=== PATIENT | female | born 1950 | race Caucasian/White ===

== ENCOUNTER 2024-03-05 11:06 | Emergency (ER) | payer MEDICARE, OTHER ==
--- NOTE | 2024-03-05 11:35 | ED Physician Documentation ---
History of Present Illness - Stated complaint Stated Complaint: FALL,LT SIDE PX - Chief complaint Chief Complaint: Trauma Ch/Bk - Additonal information Additional information: 71-year-old female here visiting from [place] on vacation fell down a flight of stairs she says that she is gassing about 13 stairs 2 days ago. She originally went into a walk-in clinic to have some x-rays done because having severe left-sided pain but they sent her here into the emergency department. She has a history of spinal stenosis and is waiting to get established with a spinal surgeon. She has severe left rib/side pain with bruising left neck pain she says that she fell forward and tumbled when she fell down the stairs. She had a right knee arthroplasty she is having bilateral knee pain. She says that she took her hydrocodone earlier this morning with little to no relief and she is having significant pain with inhalation there is no loss of consciousness she is not any blood thinners. 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, Hysterectomy - Present Medications Home Medications: Ambulatory Orders Medication Instructions Recorded Confirmed Ondansetron Odt [Zofran Odt] 4 mg TL Q6H PRN #10 tablet 03/05/24 oxyCODONE [Roxicodone] 5 mg PO Q4HR PRN #15 tablet 03/05/24 - Allergies Allergies/Adverse Reactions: Allergies Allergy/AdvReac Type Severity Reaction Status Date / Time bee venom protein (honey bee) Allergy Respiratory Verified 03/05/24 12:08 - Social History Does the pt smoke?: No Smoking Status: Never smoker Does the pt drink ETOH?: Yes ETOH Use: Wine, Liquor Does the pt have substance abuse?: No - Immunizations Immunizations are current?: Yes - POLST Patient has POLST: No Results - Vitals Vitals: Vital Signs - 24 hr 03/05/24 03/05/24 03/05/24 11:18 13:05 14:23 Temperature 36.7 C 36.8 C Heart Rate 71 77 70 Respiratory 22 18 Rate Blood Pressure 157/81 H 141/71 H 140/81 H O2 Saturation 100 100 96 Oxygen O2 Source Room air - Labs Labs: Laboratory Tests 03/05/24 03/05/24 03/05/24 11:30 11:30 11:30 WBC 8.9 RBC 4.69 Hgb 14.3 Hct 45.9 MCV 97.9 MCH 30.5 MCHC 31.2 L RDW 13.2 Plt Count 269 MPV 8.6 Neut # (Auto) 6.1 Lymph # (Auto) 1.8 Dougherty # (Auto) 0.7 Eos # (Auto) 0.2 Baso # (Auto) 0.1 Absolute Nucleated RBC 0.00 Nucleated RBC % 0.0 APTT 29.5 Sodium 137 Potassium 3.3 L Chloride 106 Carbon Dioxide 26 Anion Gap 5.0 L BUN 14 Creatinine 0.8 Estimated GFR (MDRD) 70 L Glucose 89 Calcium 8.8 Total Bilirubin 0.5 AST 14 ALT 14 Alkaline Phosphatase 78 Total Protein 7.2 Albumin 4.2 Globulin 3.0 Albumin/Globulin Ratio 1.4 Lipase 14 Urine Color Urine Clarity Urine pH Ur Specific [place] Urine Protein Urine Glucose (UA) Urine Ketones Urine Occult Blood Urine Nitrite Urine Bilirubin Urine Urobilinogen Ur Leukocyte Esterase Ur Microscopic Review Urine Culture Comments Urine Opiates Screen Ur Buprenorphine Scrn Ur Oxycodone Screen Urine Methadone Screen Ur Barbiturates Screen Ur Tricyclics Screen Ur Phencyclidine Scrn Ur Amphetamine Screen U Methamphetamines Scrn U Benzodiazepines Scrn Urine Cocaine Screen U Cannabinoids Screen Ur Drug Screen Comment Blood Type Blood Type Recheck Antibody Screen 03/05/24 03/05/24 03/05/24 11:35 12:19 12:23 WBC RBC Hgb Hct MCV MCH MCHC RDW Plt Count MPV Neut # (Auto) Lymph # (Auto) Dougherty # (Auto) Eos # (Auto) Baso # (Auto) Absolute Nucleated RBC Nucleated RBC % APTT Sodium Potassium Chloride Carbon Dioxide Anion Gap BUN Creatinine Estimated GFR (MDRD) Glucose Calcium Total Bilirubin AST ALT Alkaline Phosphatase Total Protein Albumin Globulin Albumin/Globulin Ratio Lipase Urine Color LIGHT YELLOW Urine Clarity CLEAR Urine pH 6.5 Ur Specific [place] <=1.005 Urine Protein NEGATIVE Urine Glucose (UA) NEGATIVE Urine Ketones NEGATIVE Urine Occult Blood NEGATIVE Urine Nitrite NEGATIVE Urine Bilirubin NEGATIVE Urine Urobilinogen 0.2 (NORMAL) Ur Leukocyte Esterase NEGATIVE Ur Microscopic Review NOT INDICATED Urine Culture Comments NOT INDICATED Urine Opiates Screen POSITIVE H Ur Buprenorphine Scrn NEGATIVE Ur Oxycodone Screen NEGATIVE Urine Methadone Screen NEGATIVE Ur Barbiturates Screen NEGATIVE Ur Tricyclics Screen NEGATIVE Ur Phencyclidine Scrn NEGATIVE Ur Amphetamine Screen NEGATIVE U Methamphetamines Scrn NEGATIVE U Benzodiazepines Scrn NEGATIVE Urine Cocaine Screen NEGATIVE U Cannabinoids Screen NEGATIVE Ur Drug Screen Comment CUTOFF CONC BELOW: Blood Type O POSITIVE Blood Type Recheck O POSITIVE Antibody Screen NEGATIVE - Rads (name of study) Bilateral knee x-ray Relevant Findings:: Final report received, EMP independent interpretation of test, Other (No acute bony abnormalities or findings.) Cervical spine without Relevant Findings:: Final report received, EMP independent interpretation of test, Other (No subluxation or acute bony fractures or abnormalities) Head CT without Relevant Findings:: Final report received, EMP independent interpretation of test, Other (No acute intracranial abnormalities or findings) Abdomen pelvis with Relevant Findings:: Final report received, EMP independent interpretation of test, Other (Displaced posterior left ninth and 10th rib fracture with associated small pleural effusion and basilar atelectasis, moderate hiatal hernia) Chest CT with Relevant Findings:: Final report received, EMP independent interpretation of test, Other (Displaced posterior fracture is that the left ninth and 10th ribs with small pleural effusion) PD Medical Decision Making - ED course ED course: 73-year-old female presents emergency department for severe left rib pain after falling down flight of stairs 2 days ago. Patient says that overall her pain has been manageable but comes and goes in waves. Upon arrival to the emergency department she is having a severe episode of pain. Labs are complete for further evaluation she has no leukocytosis no anemia mild hypokalemia, potassium 3.3 she was given 20 mEq of potassium for replacement. Urinalysis unremarkable. Patient had multiple different images complete for further evaluation bilateral knee x-rays were unremarkable no acute findings or abnormalities. Cervical spine was also complete without any subluxation or any acute bony abnormalities or findings. Abdomen pelvis CT with contrast was also complete no intra-abdominal abnormalities or findings chest CT with contrast was also complete and did reveal a displaced fracture of the posterior left ninth and 10th rib. She also had a small left pleural effusion and compressive atelectasis at the very base of the left lung without a pneumothorax incidentally she was also found to have a moderate hiatal hernia. We did discuss the possibility of admitting the patient here as we have been having a hard time initially controlling her pain. After second dose of IV Dilaudid she had significant alleviation of pain she got a total of 3 doses of IV Dilaudid here in the emergency department as well as Toradol and Zofran and patient was able to successfully ambulate without any difficulty to the bathroom and reported almost complete severity of the pain. Patient says that she would really prefer to discharge home and would like to avoid admission at all cost. Patient is on opioids at home for chronic's spondylosis but I do believe that she takes this very frequently and would benefit from an additional prescription of opioids. I am prescribing a short course of short-acting opioid pain medication for this patient. 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 I have discussed that the opioids are for short term therapy only, and will not be refilled from the ED. Patient was encouraged to continue to ambulate to take deep breaths and anticough frequently to help prevent from things such as pneumonia and other acute secondary side effects from broken ribs. Very strict return precautions given patient safe for discharge at this time all questions answered. Departure - Departure Disposition: 01 Home, Self Care Clinical Impression: Fall down stairs, Ribs, multiple fractures, Pleural effusion, Hypokalemia Instructions: Effusion Pleural, ED Fx Rib Prescriptions: oxyCODONE [Roxicodone] 5 mg PO Q4HR PRN #15 tablet PRN Reason: Pain 5-7 Ondansetron Odt [Zofran Odt] 4 mg TL Q6H PRN #10 tablet PRN Reason: Nausea / Vomiting Comments: Thank you for trusting us with your care. We have completed a head CT, cervical CT we do not see any acute abnormalities or findings of these. We have also completed a chest abdomen pelvis CT and we did find a displaced ninth and 10th left rib fracture. We have also found a small pleural effusion of your left lung. Your bilateral knee x-rays were found to be within normal limits. We discussed discharge versus admission and unfortunately we do not have any h ospital beds and so you would like to opt to discharge home. Going home make sure that you are very strict about writing down all the medications that you are taking daily so that you do not fall behind on your pain control. There is 325 mg of Tylenol and [place] you can take up to 1000 mg of Tylenol every 8 hours a total of 4 g, or 4000 mg of Tylenol daily. I would add additional Tylenol to your [place], I would take 650 mg of Tylenol with your [place] every 8 hours. I have also prescribed you a medication called oxycodone you can take 5 mg of oxycodone every 4 hours as needed for pain. Please take either ibuprofen or Aleve for 2 to 3 days to help with inflammation and pain. I would also consider adding a lidocaine patch to your left rib region you wear this for 12 hours on 12 hours off. Please apply 20 minutes of ice to your left ribs 1 hour off frequently throughout the day make sure that you are getting up and walking around wearing her AURELIA hose to help with bilateral lower extremity swelling and taking deep breaths and coughing with a pillow supporting your left ribs. If you go home and you are not having any improvement of symptoms and you are continuing to feel worse or starting develop any shortness of breath chest pain or any other concerning emergent symptoms please present back to the nearest emergency department for further evaluation. I am prescribing a short course of narcotic pain medication for you. These are potentially dangerous and addictive medications that should be used carefully. These medications may constipate you. Take an [id number] stool softener (docusate) twice daily with plenty of water while taking these medications. If you go 24 hours without a bowel movement, take [id number] miralax, per package instructions. Do not drink or drive while taking these medications. If you received narcotic or sedating medications while in the emergency department, do not drive for 24 hours. Store this medication in a safe, secure place and out of reach of children. It is a violation of federal law to give or sell this medication to another person or to use in a manner other than prescribed. The ED will not refill narcotic prescriptions, including prescriptions lost or stolen. To dispose of unwanted medications: 1. [facility] at [address] in [place] has a medication drop box. They accept prescription medications (in pill form) Saturday through Saturday 9:00 a.m. to 5:00 p.m. 2. The [facility] [employer] accepts prescription medications (in pill form only) for disposal year round. Call for more information. 3. Contact the [facility] for the next [facility] sponsored prescription drug collection event. , [phone], or [phone]; Note that many narcotic pain relievers also contain Tylenol/acetaminophen. Please ensure that your total dose of acetaminophen from all sources does not exceed 3 g (3000 mg) per day. Forms: PCP List Discharge Date/Time: 03/05/24 14:00
[2024-03-05] MEDS ORDERED: iohexoL-300 100 ML VIAL ONE (11:39)
[2024-03-05 11:44] LABS: BASOPHILS # (AUTO) 0.1 10^3/uL (0.0-0.1); BASOPHILS % (AUTO) 1.1 %; EOSINOPHILS # (AUTO) 0.2 10^3/uL (0.0-0.7); EOSINOPHILS % (AUTO) 1.9 %; HCT - HEMATOCRIT 45.9 % (37.0-47.0); HGB - HEMOGLOBIN 14.3 g/dL (12.0-16.0); LYMPHOCYTES # (AUTO) 1.8 10^3/uL (1.5-3.5); LYMPHOCYTES % (AUTO) 20.6 %; MEAN CORPUSCULAR HEMOGLOBIN 30.5 pg (27.0-31.0); MEAN CORPUSCULAR HGB CONC 31.2 g/dL (32.0-36.0); MEAN CORPUSCULAR VOLUME 97.9 fL (81.0-99.0); MEAN PLATELET VOLUME 8.6 fL (7.9-10.8); MONOCYTES # (AUTO) 0.7 10^3/uL (0.0-1.0); MONOCYTES % (AUTO) 7.4 %; NEUTROPHILS # (AUTO) 6.1 10^3/uL (1.5-6.6); NEUTROPHILS % (AUTO) 68.7 %; PLT - PLATELET COUNT 269 10^3/uL (130-450); RED BLOOD COUNT 4.69 10^6/uL (4.20-5.40); RED CELL DISTRIBUTION WIDTH 13.2 % (12.0-15.0); WHITE BLOOD COUNT 8.9 x10^3/uL (4.8-10.8)
[2024-03-05 11:52] LABS: POTASSIUM 3.3 mmol/L (3.5-4.5)
[2024-03-05 11:53] LABS: ALBUMIN 4.2 g/dL (3.2-5.5); ALBUMIN/GLOBULIN RATIO 1.4 (1.0-2.2); BILIRUBIN,TOTAL 0.5 mg/dL (0.2-1.0); CALCIUM 8.8 mg/dL (8.5-10.3); CREATININE 0.8 mg/dL (0.6-1.3); TOTAL PROTEIN 7.2 g/dL (6.4-8.9)
--- NOTE | 2024-03-05 12:00 | XRAY Report ---
PROCEDURE: Knee 1-2V BL INDICATIONS: fall down 13 stairs TECHNIQUE: 2 views of the bilateral knee(s) were acquired. COMPARISON: None. FINDINGS: Bones: No fractures or dislocations. Expected appearance of total left knee arthroplasty. No evidenc e of hardware failure or loosening. At least moderate right knee degenerative arthritis No suspicious bony lesions. Soft tissues: No knee joint effusion. No suspicious soft tissue calcifications or masses. IMPRESSION: No acute bony abnormality. Expected appearance of total left knee arthroplasty. At least moderate right knee degenerative arthritis. Reviewed by: Noel Garza MD on 03/05/2024 11:59 AM PDT Approved by: Noel Garza MD on 03/05/2024 11:59 AM PDT Station ID: [id number]
[2024-03-05] MEDS: ONDANSETRON 4 MG/2 ML VIAL IVP STA (12:01)
[2024-03-05] MEDS: HYDROmorphone 0.5 MG/0.5 ML SYRINGE IVP STA ×2 (12:01→13:26)
--- NOTE | 2024-03-05 12:30 | CT Report ---
PROCEDURE: Head WO INDICATIONS: Head trauma, mod-severe TECHNIQUE: Noncontrast 4.5 mm thick angled axial sections acquired from the foramen magnum to the vertex. For r adiation dose reduction, the following was used: automated exposure control, adjustment of mA and/or kV according to patient size. COMPARISON: None. FINDINGS: Image quality: Excellent. CSF spaces: Basal cisterns are patent. No extra-axial fluid collections. Ventricles are normal in size and shape. Brain: No midline shift. No intracranial masses or hemorrhage. Farfan-white matter interface is norm al. Skull and face: Calvarium and visualized facial bones are intact, without suspicious lesions. Sinuses: Visualized sinuses and mastoids are clear. IMPRESSION: No acute intracranial pathology. Reviewed by: Noel Garza MD on 03/05/2024 12:28 PM PDT Approved by: Noel Garza MD on 03/05/2024 12:28 PM PDT Station ID: [id number]
--- NOTE | 2024-03-05 12:31 | CT Report ---
PROCEDURE: Cervical Spine WO INDICATIONS: Neck trauma, midline tenderness TECHNIQUE: Noncontrast 3 mm thick sections acquired from the skull base to the T4 level. Sagittal and coronal r eformats were then constructed. For radiation dose reduction, the following was used: automated exp osure control, adjustment of mA and/or kV according to patient size. COMPARISON: None. FINDINGS: Image quality: Excellent. Bones: No fractures or dislocations. Diffuse cervical spondylosis, most notably involving multilevel bilateral cervical facet arthropathy. Visualized superior ribs are intact. Soft tissues: Prevertebral soft tissues are normal in thickness. No paravertebral hematomas. No ap ical pneumothoraces. IMPRESSION: 1. No acute cervical fracture or dislocation. 2. Cervical spondylosis. Reviewed by: Noel Garza MD on 03/05/2024 12:29 PM PDT Approved by: Noel Garza MD on 03/05/2024 12:29 PM PDT Station ID: [id number]
--- NOTE | 2024-03-05 12:39 | CT Report ---
PROCEDURE: Chest W INDICATIONS: Chest trauma, blunt, low energy CONTRAST: Omni 300 100ml TECHNIQUE: After the administration of intravenous contrast, a CT scan of the chest was performed. Images were recorded and evaluated at appropriate window settings. Reformats: axial MIP of the chest, coronal and sagittal. For radiation dose reduction, the following was used: automated exposure control, adjustme nt of mA and/or kV according to patient size. COMPARISON: CT abdomen and pelvis from the same date. FINDINGS: Image quality: Diagnostic. Chest wall and lower neck: No thyroid nodule which requires sonographic follow up. No breast mass. No axillary or supraclavicular adenopathy by size. Lungs and pleura: Small left pleural effusion with subjacent atelectasis in the left lung base. No pn eumothorax. No suspicious pulmonary nodules which require follow up. Mediastinum: Heart size is normal. No pericardial effusion. No large vessel abnormality. No mediastin al adenopathy by size criteria. Bones: There are fractures of the posterior left ninth and 10th ribs. These are both displaced fractu res. Reference axial image 293 of series 12 and 264 of series 12. Upper Abdomen: Moderate hiatal hernia. Please refer to a separate report. IMPRESSION: 1. Displaced posterior fractures of the left ninth and 10th ribs. 2. Small left pleural effusion and compressive atelectasis in the extreme left lung base. No pneumoth orax. 3. Moderate hiatal hernia. Reviewed by: Noel Garza MD on 03/05/2024 12:37 PM PDT Approved by: Noel Garza MD on 03/05/2024 12:37 PM PDT Station ID: [id number]
--- NOTE | 2024-03-05 12:41 | CT Report ---
PROCEDURE: Abdomen/Pelvis W INDICATIONS: Abdominal trauma, blunt CONTRAST: Omni 300 100ml TECHNIQUE: After the administration of intravenous contrast, a CT scan of the abdomen and pelvis was performed. Images were recorded and evaluated at appropriate window settings. Reformats: coronal and sagittal. F or radiation dose reduction, the following was used: automated exposure control, adjustment of mA and /or kV according to patient size. COMPARISON: Same date chest CT FINDINGS: Image quality: Diagnostic. Lower chest: Displaced fractures of the posterior left ninth and 10th ribs with small associated pleu ral effusion and minimal subjacent basilar atelectasis without pneumothorax. Moderate hiatal hernia.. Liver: No solid mass. Gallbladder: No radiopaque stones or wall thickening. Biliary tree: No intrahepatic or extrahepatic dilation, accounting for age. Spleen: No splenomegaly. Pancreas: No pancreatic ductal dilation. Adrenals: No adrenal nodule. Kidneys and ureters: No hydronephrosis. No renal cystic lesion which requires follow up. No solid mas s. Stomach, bowel and peritoneum: No gastric or small bowel dilation. No abnormal wall thickening. No pa thologic free fluid. Lymph nodes: No central or retroperitoneal adenopathy. Vessels: No infrarenal aortic aneurysm. Patent portal vein. PELVIS Reproductive organs: Uterus is surgically absent. No adnexal masses.. Bladder: No abnormal wall thickening, accounting for underdistention. Pelvic lymph nodes: No pelvic adenopathy by size criteria. Bones: No aggressive osseous abnormality. No compression fractures. Other: No significant ventral or inguinal hernia. IMPRESSION: 1. Displaced posterior left ninth and 10th rib fractures with associated small pleural effusion and b asilar atelectasis. 2. Moderate hiatal hernia. 3. No significant sequelae of acute trauma in the abdomen and pelvis. Reviewed by: Noel Garza MD on 03/05/2024 12:40 PM PDT Approved by: Noel Garza MD on 03/05/2024 12:40 PM PDT Station ID: [id number]
[2024-03-05 12:54] LABS: BILIRUBIN,URINE NEGATIVE (NEGATIVE); CLARITY,URINE CLEAR (CLEAR); GLUCOSE, URINE (UA) NEGATIVE (NEGATIVE); KETONES,URINE (UA) NEGATIVE (NEGATIVE); LEUKOCYTE ESTERASE, URINE NEGATIVE (NEGATIVE); NITRITE,URINE NEGATIVE (NEGATIVE); OCCULT BLOOD,URINE NEGATIVE (NEGATIVE); PH,URINE 6.5 PH (5.0-7.5); PROTEIN,URINE NEGATIVE (NEGATIVE); UROBILINOGEN,URINE 0.2 (NORMAL) E.U./dL (NORMAL)
[2024-03-05] MEDS ORDERED: HYDROmorphone 1 MG/ML CARPUJECT ONE (12:59)
[2024-03-05] MEDS: HYDROmorphone 1 MG/ML CARPUJECT IVP STA ×2 (13:00→13:30)
[2024-03-05 13:03] LABS: AMPHETAMINE SCREEN,URINE NEGATIVE (NEGATIVE); BARBITURATE SCREEN,UR NEGATIVE (NEGATIVE); BENZODIAZEPINES SCREEN, URINE NEGATIVE (NEGATIVE); BUPRENORPHINE SCREEN, URINE NEGATIVE (NEGATIVE); COCAINE SCREEN URINE NEGATIVE (NEGATIVE); METHADONE SCREEN, URINE NEGATIVE (NEGATIVE); METHAMPHETAMINES SCREEN, URINE NEGATIVE (NEGATIVE); OPIATE SCREEN, URINE POSITIVE (NEGATIVE); OXYCODONE SCREEN, URINE NEGATIVE (NEGATIVE); THC CANNABINOID SCREEN, URINE NEGATIVE (NEGATIVE); TRICYCLIC ANTIDEPRESSANT,URINE NEGATIVE (NEGATIVE)
[2024-03-05] MEDS: KETOROLAC 30 MG/ML VIAL IVP STA (13:29)
[2024-03-05] MEDS: POTASSIUM CHLORIDE 20 MEQ TABLET PO STA (14:04)
[2024-03-05] MEDS: iohexoL-300 100 ML VIAL IVP ONE (14:21)
[2024-03-05 14:28] VITALS: BP 140/81; O2SAT 96
== END 2024-03-05 14:00 | disposition home or self-care (01) ==
LOC: ED 11:06
DX: S22.42XA Multiple fractures of ribs, left side, initial encounter for closed fracture (principal); S27.9XXA Injury of unspecified intrathoracic organ, initial encounter; W10.9XXA Fall (on) (from) unspecified stairs and steps, initial encounter; J90 Pleural effusion, not elsewhere classified; E87.6 Hypokalemia; M47.812 Spondylosis without myelopathy or radiculopathy, cervical region
CPT/HCPCS: 36415; 70450; 71260; 72125; 73565; 74177; 80053; 80306; 81003; 83690; 85025; 85730; 86850; 86900; 86901; 96374; 96375; 96376; 99284; 99285; A9270; J1170; Q9967; 81001; 87086